=== PATIENT | male | born 1985 | race Caucasian/White ===

== ENCOUNTER 2024-03-12 10:06 | Emergency (ER) | payer BC, SELFPAY ==
[2024-03-12 10:08] VITALS: BP 128/87; PULSE 78; RESP 18; TEMP 36.7; O2SAT 96; BMI 26.4
--- NOTE | 2024-03-12 11:00 | ED_ITS ---
HPI - General Adult General Time Seen by Provider: 11:00 Date Seen: 03/12/24 Chief complaint: Jaw Injury/Pain Stated complaint: Jaw pain Time Seen by Provider: 03/12/24 10:16 Source: patient, RN notes reviewed and old records reviewed Mode of arrival: ambulatory Limitations: no limitations History of Present Illness HPI narrative: Amanuel is a very pleasant 39-year-old male healthy who comes to the emergency room with complaints of left sided jaw pain. Amanuel noted the onset of the discomfort gradually about 3-4 days ago. It is gradually become worse and hurts in spite of using ibuprofen. He notes that went to the [facility] yesterday and the dentist noted that his gumline was inflamed but did not issue any antibiotics. Patient was told that they were unable to do so. Since that time Amanuel has continued to monitor the area. He denies any fevers. He denies the pain as rather a dull ache worsened by chewing. When he does chew it is a throbbing sensation. He denies any ear pain. Notes that the pain seems to be more inside of his mouth then outside. He has not noticed any broken teeth or drainage of pus. He denies a sore throat. He does agree that occasionally the pain when it is bad radiates into his left christianity. He has not had any visual changes. Patient denies any trauma. Denies gritting of his teeth or history of grinding teeth. Denies any unusual increased stressors of late. Patient denies a personal or family history of autoimmune illnesses. Related Data Home Medications ?Medication ?Instructions ?Recorded ?Confirmed No Known Home Medications 03/12/24 03/12/24 Allergies Allergy/AdvReac Type Severity Reaction Status Date / Time No Known Drug Allergies Allergy Verified 03/12/24 10:14 Review of Systems Status of ROS: Reports: 10 or more systems reviewed and unremarkable except as noted in History and below Const: Denies: fever or chills Eyes: Denies: change in vision, blurry vision or seeing flashes ENMT: Reports: mouth pain; Denies: throat pain, neck pain, throat swelling, difficulty swallowing, hoarseness, swelling of lips/tongue, ear pain, ear discharge, nasal discharge or nasal congestion Resp: Denies: cough GI: Denies: nausea or difficulty swallowing Musculo: Denies: neck pain Integ/Breast: Denies: rash, redness or skin swelling Neuro: Reports: headache (Rarely pain radiates to left christianity.) Allergy/Immuno: Denies: throat swelling PFSH PFSH Social History Smoking Status: Never smoker Do you use any of these nicotine containing products: None How often do you have a drink containing alcohol: 2-3 times a week How many standard drinks containing alcohol do you have on a typical day: 1 or 2 How often do you have six or more drinks on one occasion: Never AUDIT-C Alcohol total score: 3 Non-prescribed substance use: denies use Exam Narrative: Exam Narrative: Amanuel is alert and oriented. No acute distress. EOM is full. Face is symmetrical with no unusual swelling. Examination of left ear shows normal TM without evidence of erythema fluid. Canal appears within normal limits with no evidence of excessive debris or erythema. No pain with external motion of the ear. Pain with palpation over the left angle of the jaw and onto the posterior parotid gland. I do not note any nodules fluctuance erythema with palpation. Neck is otherwise without lymphadenopathy. Oral cavity nix does show very subtle increased size left mucosa over the posterior lower molars. I do try to milk the parotid and I do not note any purulent discharge from Stensen's duct. Patient did have discomfort compared on the left compared to the right. I do tap over the teeth and there is no acute pain. Gums appear normal limits. Const: Vital Signs, click to edit/add: Vital Signs - 24 hr 03/12/24 10:08 Temperature 98.1 F Pulse Rate [Pulse Oximeter] 78 Respiratory Rate 18 Blood Pressure [Ri ght Upper Arm] 128/87 Pulse Oximetry 96 Oxygen Delivery Me thod Room Air Documenting provider has reviewed patient's vital signs: yes Course Course ED Course: Differential diagnosis includes but is not limited to temporal arteritis, TMJ, parotitis, duct stone, pharyngitis. At this time patient is without fever, chills, external signs of swelling. I do suggest ordering of labs to include a basic panel, CBC to detect elevation of white count, CRP and sed rate to monitor inflammatory markers as well as rule out temporal arteritis. If abnormal would suggest a CT at that time. Amanuel does endorse that the swelling on the inside of the small seems to increase a bit when he is eating. This would fits with parotitis. He has no personal or family history of autoimmune disorders and is quite young to be presenting with temporal arteritis. This also could simply be a TMJ. Vital Signs Vital signs: Initial Vital Signs Temperature 98.1 F 03/12/24 10:08 Temperature Source Temporal Artery Scan 03/12/24 10:08 Pulse Rate 78 03/12/24 10:08 Respiratory Rate 18 03/12/24 10:08 Blood Pressure 128/87 03/12/24 10:08 Blood Pressure Mean 100 03/12/24 10:08 Blood Pressure Position Sitting 03/12/24 10:08 Pulse Oximetry 96 03/12/24 10:08 Oxygen Delivery Method Room Air 03/12/24 10:08 Vital Signs Temperature 98.1 F 03/12/24 10:08 Pulse Rate 78 03/12/24 10:08 Respiratory Rate 18 03/12/24 10:08 Blood Pressure 128/87 03/12/24 10:08 Pulse Oximetry 96 03/12/24 10:08 Oxygen Delivery Method Room Air 03/12/24 10:08 Temperature 98.1 F 03/12/24 10:08 Pulse Rate 78 03/12/24 10:08 Respiratory Rate 18 03/12/24 10:08 Blood Pressure 128/87 03/12/24 10:08 Pulse Oximetry 96 03/12/24 10:08 Oxygen Delivery Method Room Air 03/12/24 10:08 Medical Decision Making MDM Narrative Medical decision making narrative: 1. Left jaw pain-at this time patient does have increased size of the left parotid gland without any purulent discharge. I was able to speak with our ENT who does suggest CT today or tomorrow with treatment of Keflex. I had ordered labs but Amanuel would like to go to work and therefore he understands that we may be missing something today. He is okay and very receptive to taking antibiotic. He agrees to return for fever, swelling of the face, visual changes, worsening of the headache, vomiting or chills. I did stress the importance of follow-up if he has worsening or ongoing symptoms. He states he does not really have a doctor in town and therefore agrees to return to the emergency room. 2. Disposition-home at this time. We have canceled his lab orders at this time. Keflex 500 mg q.i.d. x7 days is sent to our [facility] machine. Patient is going to work. Agrees to return for worsening symptoms. Suggest alternating ibuprofen and Tylenol every 4 hours for discomfort. Medical Records Medical records reviewed: Yes I reviewed the patient's medical records Discharge Plan Discharge Clinical Impression: Jaw pain Patient Disposition: Home, Self-Care Condition: Unchanged Additional Instructions: Start Keflex for possible infection of your salivary gland. Alternate ibuprofen and Tylenol every 4 hours for discomfort. Suck on lemon drops to encourage saliva production and drainage of the salivary gland. You may also use your fingers to massage this area. Return for headache, visual changes, fever, chills, worsening swelling, worsening pain or redness. Prescriptions: No Action No Known Home Medications Follow Up/Referrals: Provider,Not a Local [Primary Care Provider] - Stand Alone Forms: [facility] Info Instructions
== END 2024-03-12 11:33 | disposition home or self-care (01) ==
PROVIDERS: Emergency Provider Family Medicine
DX: R68.84 Jaw pain (principal)
CPT/HCPCS: 80048; 85025; 85651; 86140; 99283; 99284

== ENCOUNTER 2024-11-10 09:12 | Emergency (ER) | payer BC, SELFPAY ==
--- OUTSIDE RECORDS SUMMARY | 2024-11-10 09:14 | XMS_ITS | Clinical Summary ---
Author Organization [facility] Address [address] [place] [address] Care Team Providers Care Brazing Furnace Feeder Name Role Phone Pcp, No Primary Care Provider Unavailabl e Allergies No known active allergies Medications cyclobenzaprine (FLEXERIL) 10 mg tabletIndication s:Back muscle spasm Take 1 Tablet (10 mg) by mouth 2 times daily if needed for Muscle Spasm. 25 Tablet 1 01/03/2023 Active Active Problems No known active problems Immunizations Immunization Administration Dates Next Due Tdap 11/09/2009 Social History Tobacco Use Types Packs/Day Years Used Date Smoking Tobacco: Some Days Cigarettes 0 12.4 Started: 2012 Cigars Smokeless Tobacco: Never Tobacco Cessation:Ready to Q uit: Yes; Counseling Given: Not Answered Comments:Has maybe 1 every few months or so Alcohol Use Standard Drinks/Week Comments Yes 5.8 (1 standard drink = 0.6 oz p ure alcohol) PHQ-2 Answer Date Recorded PHQ-2 TOTAL SCORE 0 11/05/2020 Social Connections Answer Date Recorded Frequency of Communication with Friends and Fami ly Not on file 01/03/2023 Alcohol Use Answer Date Recorded How often do you have a drink containing alcohol ? 3 01/03/2023 How many drinks containing a lcohol do you have on a typical day when you are drinking? 0 01/03/2023 How often do you have five or more drinks on one occasion? 0 01/03/2023 Financial Resource Strain Answer Date R ecorded Difficulty of Paying Living Expenses Not on file 06/25/2021 Difficulty of Paying Living Expenses Not on file 06/25/2021 Sex and Gender Information Value Date Recorded Sex Assigned at Not on file Legal Sex Male 5:[address] Gender Identity Not on file Sexual Orientation Not on file Obstetrics History Last Filed Vital Signs Vital Sign Reading Time Taken Comments Blood Pressure 120/81 01/03/2023 9:28 AM CDT Pulse 89 01/03/2023 9:28 AM CDT Temperature 36.7 C (98.1 F) 11/05/2020 11:32 AM CDT Respiratory Rate 18 09/18/2012 8:30 PM CDT Oxygen Saturation 98% 01/03/2023 9:28 AM CDT Inhaled Oxygen Concentration - - Weight 86.8 kg (191 lb 6.4 oz) 01/03/2023 9:28 A M CDT Height 178.5 cm (5' 10.28) 01/03/2023 9:28 AM C DT Body Mass Index 27.25 01/03/2023 9:28 AM CDT Plan of Treatment Health Maintenance Due Date Last Done Comments Depression screening for age 12+ 1999 HIV for age 15-65 2002 Hepatitis C screening for age 18-79 2005 Pneumococcal series for age 6-49 (1 of 2 - PCV) 2006 Tetanus booster 11/10/2019 11/09/2009, 11/09/2009 Lipids for age 35-44 2022 BMI (ht and wt on same day) for age 18+ 01/04/2024 0 01/03/2023, 10/16/2018 COVID-19 vaccine series ( season) 2024 Influenza Vaccine (Season Ended) 2025 Tdap Completed 11/09/2009 Insurance [facility] * Guarantor: [facility] Account Type Relation to Patient Date of Phone Billing Address Inmate Billing [id number] [address] * Guarantor: [facility] Account Type Relation to Patient Date of Phone Billing Address Inmate Billing [facility] Care Teams Brazing Furnace Feeder Relationship Specialty Start Date End Date Pcp, No . PCP - General 05/09/12
--- OUTSIDE RECORDS SUMMARY | 2024-11-10 09:14 | XMS_ITS | Clinical Summary ---
Author Organization [facility] Address [address], [place] [address] Care Team Providers Care Editorial Intern Name Role Phone Found, No Pcp MD Primary Care Provider Unavailab le Source Comments You are receiving this document as you are listed as the primary care provider,follow-up provider, or the patient has been referred to you for consultation.This is in compliance with the Medicare and[facility] EHR Incentive Program,which states Providers who transition their patient to another setting of careor provider of care or refers their patient to another provider of care shouldprovide summary care record for each transition of care or referral. [facility] Allergies No known active allergies Medications No known medications Active Problems No known active problems Social History Tobacco Use Types Packs/Day Years Used Date Smoking Tobacco: Never Smokeless Tobacco: Never Sex and Gender Information Value Date Recorded Sex Assigned at Not on file Legal Sex Male 4:12 AM CDT Gender Identity Not on file Sexual Orientation Not on file Last Filed Vital Signs Vital Sign Reading Time Taken Comments Blood Pressure 119/67 01/11/2018 11:52 AM CDT Pulse 87 01/11/2018 11:52 AM CDT Temperature 36.7 C (98.1 F) 01/11/2018 11:52 AM CDT Respiratory Rate 18 01/11/2018 11:52 AM CDT Oxygen Saturation 98% 01/11/2018 11:52 AM CDT Inhaled Oxygen Concentration - - Weight - - Height - - Body Mass Index - - Plan of Treatment Health Maintenance Due Date Last Done Comments Hep C Screening (Preventive Services) 1987 HIV Screening (Preventive Services) 2003 Adult Preventive Visit 2005 DTaP/Tdap/Td Vaccine (1 - Tdap) 2006 HepB Vaccine (1) 2006 Cholesterol 2022 COVID-19 Vaccine (1 - 2023-2 5 season) 2024 Influenza Vaccine (Season Ended) 2025 Zoster/Shingles Vaccine (1 of 2) 2037 HPV Vaccine Aged Out No longer eligi ble based on patient's age to complete this topic HepA Vaccine Aged Out No longer eligi ble based on patient's age to complete this topic Hib Vaccine Aged Out No longer eligi ble based on patient's age to complete this topic IPV (Polio) Vaccine Aged Out No longe r eligible based on patient's age to complete this topic MCV4 Vaccine Aged Out No longer eligi ble based on patient's age to complete this topic Meningococcal B Vaccine Aged Out No l onger eligible based on patient's age to complete this topic Pneumococcal Vaccine Aged Out No long er eligible based on patient's age to complete this topic Insurance [facility] Care Teams Editorial Intern Relationship Specialty Start Date End Date Found, No Pcp, [address] [place] [address] PCP - General 08/10/14
--- OUTSIDE RECORDS SUMMARY | 2024-11-10 09:14 | XMS_ITS | Clinical Summary ---
Author Organization [facility] Address [facility] [place] [address] Care Team Providers Care Electronic News Gathering Camera Person Name Role Phone Clinic, [facility] Primary Care Provider [phone] Allergies Active Allergy Reactions Criticality Noted Date Comments No Known Drug Allergy 01/24/2007 Medications loperamide (IMODIUM A-D) 2 MG tablet Take 2 tabs (4 mg) after first loose stool, and then take one tab (2 mg) after each diarrheal stool. Max of 8 tabs (16 mg) per day. 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 Gender Identity Not on file Sexual Orientation Not on file Last Filed Vital Signs Vital Sign Reading Time Taken Comments Blood Pressure 118/68 02/07/2020 3:42 PM CDT Pulse 111 02/07/2020 3:42 PM CDT Temperature 36.8 C (98.2 F) 02/07/2020 3:42 PM CDT Respiratory Rate 16 02/07/2020 3:42 PM CDT Oxygen Saturation 98% 02/07/2020 3:42 PM CDT Inhaled Oxygen Concentration - - Weight 81.6 kg (180 lb) 02/07/2020 3:42 PM CDT Height 180.3 cm (5' 11) 09/16/2017 11:49 AM CDT Body Mass Index 25.1 09/16/2017 11:49 AM CDT Plan of Treatment Not on file Care Teams Electronic News Gathering Camera Person Relationship Specialty Start Date End Date Clinic, [facility] [address] [place] [address] [place] [address] PCP - General 10/31/18
[2024-11-10 09:23] VITALS: BP 121/80; PULSE 77; RESP 16; TEMP 36.4; O2SAT 94; BMI 25.8
--- NOTE | 2024-11-10 09:29 | ED_ITS ---
HPI - Skin/Abscess/Foreign Bdy General Time Seen by Provider: 09:30 Date Seen: 11/10/24 Chief complaint: Skin/Abscess/Foreign Body Stated complaint: bug bites on hands Time Seen by Provider: 11/10/24 09:29 Source: patient and RN notes reviewed Mode of arrival: ambulatory Limitations: no limitations History of Present Illness HPI narrative: This 39-year-old male is coming in with complaint of rash. He had it on his elbows, flank area. Was on his hands, on his feet. Has been there for about 2 and half weeks. He notes that he is a waking in the middle of the night with intense itching. They are going on a camping trip in about 2 weeks. No other family members are noted to have a rash at this time. Notes as a kid he used to get scabies every summer. He did have some leftover permethrin at home, it seem to work and then he still had some rash in his hands, it seems to be worsening again. He had a little leftover permethrin and put it on the palm of his left hand, he states that rash seems to be drying out in dying. He also was doing yd work on his property, there could have been exposure to poison oak and poison asha about 2 weeks ago. However, the rash that he did treat did respond to the permethrin. He has an area on his foot, by the toe. There is a little on his left lower flank area and some on the palms of his hand, left hand is feeling better as he had a little topical permethrin left over. The permethrin was on the tube however. No fevers or chills. complaint: rash Related Data Previous Rx's ?Medication ?Instructions ?Recorded permethrin 5 % topical cream 1 applic topical Q14D 2 doses #60 11/10/24 grams Allergies Allergy/AdvReac Type Severity Reaction Status Date / Time No Known Drug Allergies Allergy Verified 11/10/24 09:22 Review of Systems Narrative: As per HPI. PFSH PFS Social History Smoking Status: Never smoker Do you use any of these nicotine containing products: None How often do you have a drink containing alcohol: 2-3 times a week How many standard drinks containing alcohol do you have on a typical day: 1 or 2 How often do you have six or more drinks on one occasion: Never AUDIT-C Alcohol total score: 3 Non-prescribed substance use: denies use Exam Const: Vital Signs, click to edit/add: Vital Signs - 24 hr 11/10/24 09:23 Temperature 97.5 F L Pulse Rate [Pulse Oximeter] 77 Respiratory Rate 16 Blood Pressure [Ri ght Upper Arm] 121/80 Pulse Oximetry 94 Oxygen Delivery Me thod Room Air This 39-year-old male is alert, interactive, no apparent distress. Sclera clear, face atraumatic. Has 2 small pinkish circular slightly raised areas on his left lower posterior hip area overlying the iliac crest area. There are no vesicles, no scaling. He has a similar small little pink spot on the dorsum of his big toe. On the palms of his hands has some thickening, the left hand has some discoloration brownish to purplish but not tender, not blanchable. On the palms of the hands this almost looks to have an examine this nature. Hands are fully mobile. Just seems to be rash within the soft tissues. There is no rash on his arms, no rash elsewhere that I can see at this time. Documenting provider has reviewed patient's vital signs: yes Course Course ED Course: Did review with patient options for ivermectin verses permethrin. On discussion, he did opt for the topical permethrin. We did review that there was some classic features it seemed to be consistent with scabies. He reports a history of recurrent scabies. The left hand really did respond to the topical permethrin, only had a small drop left. Rash is starting to spread now. He really is getting increased nocturnal itching. Reviewed with him that he has minimal rash right now and really is nondescript but will go based off his history. I think the topical permethrin potentially makes more sense than an or al medication given that we are not 100% sure on this rash. Vital Signs Vital signs: Initial Vital Signs Temperature 97.5 F L 11/10/24 09:23 Temperature Source Oral 11/10/24 09:23 Pulse Rate 77 11/10/24 09:23 Pulse Rhythm Regular 11/10/24 09:23 Respiratory Rate 16 11/10/24 09:23 Blood Pressure 121/80 11/10/24 09:23 Blood Pressure Mean 93 11/10/24 09:23 Blood Pressure Position Sitting 11/10/24 09:23 Pulse Oximetry 94 11/10/24 09:23 Oxygen Delivery Method Room Air 11/10/24 09:23 Vital Signs Temperature 97.5 F L 11/10/24 09:23 Pulse Rate 77 11/10/24 09:23 Respiratory Rate 16 11/10/24 09:23 Blood Pressure 121/80 11/10/24 09:23 Pulse Oximetry 94 11/10/24 09:23 Oxygen Delivery Method Room Air 11/10/24 09:23 Temperature 97.5 F L 11/10/24 09:23 Pulse Rate 77 11/10/24 09:23 Respiratory Rate 16 11/10/24 09:23 Blood Pressure 121/80 11/10/24 09:23 Pulse Oximetry 94 11/10/24 09:23 Oxygen Delivery Method Room Air 11/10/24 09:23 Discharge Plan Discharge Clinical Impression: Rash Patient Disposition: Home, Self-Care Condition: Stable Instructions: Scabies (ED), Acute Rash (ED) Additional Instructions: Use permethrin. Follow handouts. If the rash is not improving with use of the permethrin, please seek evaluation in clinic, may need to see Dermatology. Watch family members, would need to follow up in clinic if there is concern for them nupur this. Do recommend repeating the permethrin a 2nd time 1-2 weeks after the 1st application. Prescriptions: New permethrin 5 % cream 1 applic topical Q14D Qty: 60 1RF Rx Instructions: apply second treatment 14 days after first treatment if live lice remain Follow Up/Referrals: Provider,Not a Local [Primary Care Provider] - Stand Alone Forms: MyHealth Info Instructions
--- OUTSIDE RECORDS SUMMARY | 2024-11-10 09:45 | XMS_ITS | Clinical Summary ---
Author Organization [facility] Address [address], [place] [address] Care Team Providers Care Heel Sprayer Name Role Phone Found, No Pcp MD Primary Care Provider Unavailab le Source Comments You are receiving this document as you are listed as the primary care provider,follow-up provider, or the patient has been referred to you for consultation.This is in compliance with the Medicare and[facility] Incentive [facility],which states Providers who transition [...] patient's age to complete this topic Insurance [facility] Care Teams Heel Sprayer Relationship Specialty Start Date End Date Found, No Pcp, [address] [place] [address] PCP - General 08/10/14
--- OUTSIDE RECORDS SUMMARY | 2024-11-10 09:45 | XMS_ITS | Clinical Summary ---
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 PCP - General 05/09/12
--- OUTSIDE RECORDS SUMMARY | 2024-11-10 09:45 | XMS_ITS | Clinical Summary ---
Author Organization [facility] Address [facility] 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
== END 2024-11-10 09:52 | disposition home or self-care (01) ==
PROVIDERS: Emergency Provider Family Medicine
DX: R21 Rash and other nonspecific skin eruption (principal)
CPT/HCPCS: 99282; 99283

== ENCOUNTER 2025-03-08 11:45 | Emergency (ER) | payer BC, SELFPAY ==
--- OUTSIDE RECORDS SUMMARY | 2025-03-08 11:47 | XMS_ITS | Clinical Summary ---
Author Organization [facility] Address [address], [place] [address] Care Team Providers Care Station Gateman Name Role Phone Found, No Pcp MD Primary Care Provider Unavailab le Source Comments You are receiving this document as you are listed as the primary care provider,follow-up provider, or the patient has been referred to you for consultation.This is in compliance with the Medicare and[employer] EHR Incentive Program,which states Providers who transition [...] - Tdap) 2006 HepB Vaccine (1) 2006 HPV Vaccine (1 - 3-dose SCDM series) 2014 Cholesterol 2022 COVID-19 Vaccine (1 - 2023-2 5 season) 2025 Influenza Vaccine (#1) 2025 Zoster/Shingles Vaccine (1 of 2) 2037 HepA Vaccine Aged Out No longer eligi [...] patient's age to complete this topic Insurance [facility] Care Teams Station Gateman Relationship Specialty Start Date End Date Found, No Pcp, [address] [place] [address] PCP - General 08/10/14
--- OUTSIDE RECORDS SUMMARY | 2025-03-08 11:47 | XMS_ITS | Clinical Summary ---
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 Gender Identity Not on file Sexual Orientation [...] Health Maintenance Due Date Last Done Comments HIV for age 15-65 2002 Hepatitis C screening for ag e 18-79 2005 Hepatitis B series for 19+ ( 1 of 3 - 19+ 3-dose series) 2006 HPV series for age 9-45 (1 - 3-dose SCDM series) 2014 Tetanus booster 11/10/2019 11/09/2009, 11/09/2009 Depression screening for age 12+ 11/05/2021 11/05/2020, 10/16/2018 Lipids for age 35-44 2022 BMI (ht and wt on same day) for age 18+ 01/04/2024 01/03/2023, 10/16/2018 COVID-19 vaccine series (2023- season) 2025 Influenza Vaccine (#1) 2025 RSV vaccine for adults or (1 - 1-dose 75+ series) 2062 Pneumococcal series for age 6-49 Aged Out No longer eligible b ased on patient's age to complete this topic Insurance [facility] * Guarantor: [facility] Account Type Relation to Patient Date of Phone Billing Address Inmate Billing [id number] [id number] * Guarantor: [facility] Account Type Relation to Patient Date of Phone Billing Address Inmate Billing [facility] Care Teams Regulated Program Manager Relationship Specialty Start Date End Date PcpLorrie PCP - General 05/09/12
--- OUTSIDE RECORDS SUMMARY | 2025-03-08 11:47 | XMS_ITS | Clinical Summary ---
Author Organization [facility] Address [facility] 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
[2025-03-08 12:12] VITALS: BP 142/88; PULSE 91; RESP 18; TEMP 36.6; O2SAT 96; BMI 25.8
--- NOTE | 2025-03-08 13:05 | ED.DENTAL ---
HPI - Dental/Oral General Chief complaint: Dental/Oral/Mouth Injury/Pain Stated complaint: head/tooth pain Time Seen by Provider: 03/08/25 12:15 History of Present Illness HPI Narrative: This 40-year-old male comes in reporting dental pain in the right lower posterior tooth. His pain started a few days ago but has worsened significantly since last night. Related Data Previous Rx's ?Medication ?Instructions ?Recorded amoxicillin 500 mg capsule 500 mg PO TID 10 days #30 caps 03/08/25 ketorolac 10 mg tablet 10 mg PO TID 5 days #15 tabs 03/08/25 Allergies Allergy/AdvReac Type Severity Reaction Status Date / Time No Known Drug Allergies Allergy Verified 03/08/25 12:25 Review of Systems Status of ROS: Reports: 10 or more systems reviewed and unremarkable except as noted in History and below Narrative: Constitutional: No fevers, no weight gain or loss. Eyes: No discharge. No vision changes. HENT: No congestion, no sore throat, no ear pain. Cardiovascular: No chest pain, no palpitations. Respiratory: No shortness of breath, no wheezes, no cough. Gastrointestinal: No abdominal pain, no vomiting, no diarrhea. Genitourinary: No dysuria, no hematuria. Musculoskeletal: Normal range of motion. Skin: No rashes, no pruritis. Neurological: No dizziness, weakness, sensory change, speech change. Endo/Heme/Allergies: No bruising or bleeding. No polydipsia. Pysch: no suicidality, no anxiety, no insomnia. All other systems reviewed and are negative. [facility] Social History Smoking Status: Never smoker Do you use any of these nicotine containing products: None How often do you have a drink containing alcohol: 2-3 times a week How many standard drinks containing alcohol do you have on a typical day: 1 or 2 How often do you have six or more drinks on one occasion: Never AUDIT-C Alcohol total score: 3 Non-prescribed substance use: denies use Exam Narrative: Exam Narrative: Constitutional: Well-developed, well-nourished, no acute distress. HEENT: Normocephalic, atraumatic. No sign of swelling. Oral exam appears normal. Neck: Normal range of motion. Nontender. Supple. Heart: Intact distal pulses. Lungs: No chest discomfort. No wheezes, rhonchi, or rales. Abdomen: Nontender. Back: Normal range of motion. Extremities: Normal range of motion. No injury. Skin: Intact. No rash. Warm. No erythema or pallor. Neurologic: No altered sensation. No weakness. Alert and oriented. Psychiatric: No suicidality. No anxiety or depression. No insomnia. Nursing notes and vitals signs are reviewed. Const: Vital Signs, click to edit/add: Vital Signs - 24 hr 03/08/25 12:12 Temperature 97.9 F Pulse Rate [Pulse Oximeter] 91 Respiratory Rate 18 [facility] 142/88 H Pulse Oximetry 96 Oxygen Delivery Me thod Room Air Course Vital Signs Vital signs: Initial Vital Signs Temperature 97.9 F 03/08/25 12:12 Temperature Source Temporal Artery Scan 03/08/25 12:12 Pulse Rate 91 03/08/25 12:12 Respiratory Rate 18 03/08/25 12:12 Blood Pressure 142/88 H 03/08/25 12:12 Blood Pressure Mean 106 H 03/08/25 12:12 Blood Pressure Position Sitting 03/08/25 12:12 Pulse Oximetry 96 03/08/25 12:12 Oxygen Delivery Method Room Air 03/08/25 12:12 Vital Signs Temperature 97.9 F 03/08/25 12:12 Pulse Rate 91 03/08/25 12:12 Respiratory Rate 18 03/08/25 12:12 Blood Pressure 142/88 H 03/08/25 12:12 Pulse Oximetry 96 03/08/25 12:12 Oxygen Delivery Method Room Air 03/08/25 12:12 Temperature 97.9 F 03/08/25 12:12 Pulse Rate 91 03/08/25 12:12 Respiratory Rate 18 03/08/25 12:12 Blood Pressure 142/88 H 03/08/25 12:12 Pulse Oximetry 96 03/08/25 12:12 Oxygen Delivery Method Room Air 03/08/25 12:12 MDM - Dental/Oral MDM Narrative Medical decision making narrative: This patient is experiencing dental pain and is encouraged to acquire a dental appointment as soon as possible. He did agree to receive a therapeutic injection of bupivacaine over the right inferior alveolar nerve. This brought relief to his symptoms. He did receive prescriptions for Toradol and amoxicillin. Discharge Plan Discharge Clinical Impression: Toothache Patient Disposition: Home, Self-Care Condition: Stable Additional Instructions: Take medications as needed and indicated. Follow-up with dentist as soon as possible. Prescriptions: New amoxicillin 500 mg capsule 500 mg PO TID 10 Days Qty: 30 0RF ketorolac 10 mg tablet 10 mg PO TID 5 Days Qty: 15 0RF Follow Up/Referrals: Provider,Not a Local [Primary Care Provider, Family Practice] Stand Alone Forms: [employer] Info Instructions
== END 2025-03-08 13:24 | disposition home or self-care (01) ==
LOC: ED 13:21
PROVIDERS: Emergency Provider Emergency Medicine Emergency Medical Services
DX: K08.89 Other specified disorders of teeth and supporting structures (principal)
CPT/HCPCS: 99283; 99284